=== PATIENT | male | born 1995 | race Caucasian/White ===

== ENCOUNTER 2018-12-20 13:47 | Emergency (ER) | payer BC ==
[~2018-12-20] VITALS: Ht 182.9 cm; Wt 99.8 kg
[2018-12-20 14:00] VITALS: BP 135/82
--- NOTE | 2018-12-20 15:47 | NUR ---
Patient discharged to home in stable condition. Written and verbal after care instructions given. Patient verbalizes understanding of instruction.
== END 2018-12-20 15:49 | disposition home or self-care (01) ==
LOC: ER 13:56
DX: L73.8 Other specified follicular disorders (principal); L01.09 Other impetigo; L81.8 Other specified disorders of pigmentation; R21 Rash and other nonspecific skin eruption; F12.10 Cannabis abuse, uncomplicated; F10.10 Alcohol abuse, uncomplicated; Y90.9 Presence of alcohol in blood, level not specified; Z98.890 Other specified postprocedural states